=== PATIENT | male | born 1975 | race African-American/Black ===

== ENCOUNTER 2024-12-17 01:16 | Emergency (ER) | payer MEDICAID, OTHER ==
[~2024-12-17] VITALS: Ht 177.8 cm; Wt 76.0 kg
[2024-12-17 01:19] VITALS: BP 137/77; PULSE 72; RESP 16; O2SAT 98
== END 2024-12-17 01:44 | disposition home or self-care (01) ==
LOC: ER 01:16
DX: S00.81XA Abrasion of other part of head, initial encounter (principal); R10.9 Unspecified abdominal pain; F12.10 Cannabis abuse, uncomplicated; Z00.00 Encounter for general adult medical examination without abnormal findings; Z65.3 Problems related to other legal circumstances; X58.XXXA Exposure to other specified factors, initial encounter; Y93.89 Activity, other specified; Y92.89 Other specified places as the place of occurrence of the external cause; Y99.8 Other external cause status
CPT/HCPCS: 99283